=== PATIENT | female | born 1960 | race Caucasian/White ===

== ENCOUNTER 2018-04-08 07:29 | Emergency (ER) | payer OTHER ==
[~2018-04-08] VITALS: Ht 160 cm; Wt 93.9 kg
[2018-04-08 07:45] LABS: URINE BILIRUBIN NEGATIVE (Negative); URINE BLOOD TRACE (Negative); URINE CLARITY CLEAR; URINE COLOR YELLOW; URINE GLUCOSE-RANDOM NEGATIVE (Negative); URINE KETONES NEGATIVE (Negative); URINE LEUKOCYTES-REFLEX 3+ (Negative); URINE NITRITE-REFLEX NEGATIVE (Negative); URINE PROTEIN TRACE (Negative); URINE UROBILINOGEN 0.2 E.U./dl (0.2-1.0)
[2018-04-08] MEDS ORDERED: PLAVIX 75 MG TA75 M1 PO (07:45)
[2018-04-08] MEDS ORDERED: ATORVASTATIN CA40 MG PO (07:45)
[2018-04-08] MEDS ORDERED: PREMPRO 0.45-11 EACH PO (07:46)
[2018-04-08] MEDS ORDERED: AVAPRO 150 MG150 MG PO (07:47)
[2018-04-08] MEDS ORDERED: FISH OIL 1,001000 M2 PO (07:47)
[2018-04-08] MEDS ORDERED: CHLORTHALIDONE25 MG PO (07:47)
[2018-04-08] MEDS ORDERED: UNICOMPLEX M TA1 TA1 PO (07:47)
[2018-04-08] MEDS ORDERED: ASPIR 8181 MG PO (07:47)
[2018-04-08] MEDS ORDERED: VITAMIN B-12500 MCG PO (07:47)
[2018-04-08 07:52] LABS: BACTERIA-REFLEX 1-9 Few /HPF (None Seen); CASTS None Seen /LPF (None Seen); CRYSTALS None Seen /LPF (None Seen); MUCUS None Seen strn/LPF (None Seen); SQUAMOUS >10 Many /LPF (0-3); URINE RBC 0-2 Rare /HPF (0-2); URINE WBC-REFLEX >25 Many /HPF (0-5)
[2018-04-08] MEDS ORDERED: CIPRO500 M1 PO (07:53)
[2018-04-08] MEDS ORDERED: DOXYCYCLINE 10100 MG PO (07:56)
[2018-04-08 08:00] VITALS: BP 133/51
== END 2018-04-08 08:05 | disposition home or self-care (01) ==
LOC: M.ERS 07:29
PROVIDERS: Emergency Medicine Emergency Medical Services
DX: L03.319 Cellulitis of trunk, unspecified (principal); N39.0 Urinary tract infection, site not specified

== ENCOUNTER 2018-10-25 17:36 | Emergency (ER) | payer OTHER ==
[~2018-10-25] VITALS: Ht 152.4 cm; Wt 101.2 kg
[~2018-10-25 17:36] MED LIST: ASPIR 8181 MG PO; ATORVASTATIN CA40 MG PO; AVAPRO 150 MG150 MG PO; CHLORTHALIDONE25 MG PO; CIPRO500 M1 PO; DOXYCYCLINE 10100 MG PO; FISH OIL 1,001000 M2 PO; PLAVIX 75 MG TA75 M1 PO; PREMPRO 0.45-11 EACH PO; UNICOMPLEX M TA1 TA1 PO; VITAMIN B-12500 MCG PO
[2018-10-25] MEDS ORDERED: CHLORTHALIDONE25 MG PO (17:44)
[2018-10-25] MEDS ORDERED: ZETIA10 MG PO (17:45)
[2018-10-25] MEDS ORDERED: NORVASC5 MG PO (17:45)
[2018-10-25 18:02] LABS: ABSOLUTE BASOPHILS 0.1 thou/uL (0.0-0.2); ABSOLUTE EOSINOPHILS 0.2 thou/uL (0.0-0.7); ABSOLUTE LYMPHOCYTES 3.6 thou/uL (0.8-5.3); ABSOLUTE NEUTROPHILS 9.6 thou/uL (1.6-8.1); BASOPHILS 0.7 %; EOSINOPHILS 1.5 %; HEMATOCRIT 36.9 % (37.0-47.0); HEMOGLOBIN 12.2 gm/dL (12.0-15.0); LYMPHOCYTES 24.6 %; MCH 32.3 pg (26.0-34.0); MCHC 33.1 g/dL (28.0-37.0); MCV 97.5 fL (80.0-100.0); MONOCYTES 7.2 %; MPV 9.5 fl. (7.2-11.1); NUCLEATED RBCS 0 /100WBC; PLATELET COUNT* 215 thou/uL (150-400); RBC 3.78 mil/uL (4.20-5.00); RDW-CV 14.5 % (10.5-14.5); WBC 14.5 thou/uL (4.0-11.0)
[2018-10-25 18:08] LABS: APTT 29.4 Seconds (25.0-31.3); PROTIME 10.7 Seconds (9.20-11.50)
[2018-10-25 18:15] LABS: ALBUMIN 3.5 g/dL (3.4-5.0); ALKALINE PHOSPHATASE 134 U/L (46-116); ANION GAP 11 mmol/L (7-16); BUN 18 mg/dL (7-18); CALCIUM 9.4 mg/dL (8.5-10.1); CHLORIDE 94 mmol/L (98-107); CO2 27 mmol/L (21-32); CREATININE 1.1 mg/dL (0.6-1.3); GLUCOSE 175 mg/dL (70-99); POTASSIUM 3.8 mmol/L (3.5-5.1); SGOT 59 U/L (15-37); SGPT 51 U/L (30-65); SODIUM 132 mmol/L (136-145); TOTAL BILIRUBIN 0.6 mg/dL (<0.1-1.0); TOTAL PROTEIN 8.2 g/dL (6.4-8.2); TROPONIN-I LEVEL <0.06 ng/mL (<0.06)
[2018-10-25 20:34] VITALS: BP 143/68
== END 2018-10-25 20:37 | disposition short-term general hospital (02) ==
LOC: M.ERS 17:36
PROVIDERS: Emergency Medicine Emergency Medical Services
DX: T78.3XXA Angioneurotic edema, initial encounter (principal); Z88.8 Allergy status to other drugs, medicaments and biological substances; Y84.8 Other medical procedures as the cause of abnormal reaction of the patient, or of later complication, without mention of misadventure at the time of the procedure; Y92.89 Other specified places as the place of occurrence of the external cause

== ENCOUNTER 2018-12-09 15:23 | Inpatient (IN) | payer OTHER ==
[~2018-12-09] VITALS: Ht 162.6 cm; Wt 87.1 kg
[~2018-12-09 15:23] MED LIST changes: +NORVASC5 MG PO; +ZETIA10 MG PO
[2018-12-09] MEDS ORDERED: LOPRESSOR50 PO (18:34)
[2018-12-09] MEDS ORDERED: FLOMAX0.4 MG PO (18:35)
[2018-12-09] MEDS ORDERED: NORCO 5-325 TA1 EACH PO (18:40)
[2018-12-09] MEDS ORDERED: MIRALAX17 GM PO (18:41)
[2018-12-09 19:05] VITALS: BP 155/64
--- NOTE | 2018-12-09 23:31 | NUR ---
ASSUMED CARE AT 1930. PATIENT ADMITTED FROM [facility] PER W/C DESTINY. HAD ANGIOEDEMA REACTION ON OCTOBER 25 TO LISINOPRIL RESULTING IN SEVERE RESPIRATORY DISTRESS, WITH RESULTANT TRACHEOSTOMY. HAS BEEN AT [facility] SINCE OCTOBER 25. ASSISTED TO BED, NEEDS HELP FROM TWO STAFF TO PULL UP IN BED. TAKES PILLS WHOLE WITH WATER. HAS OLD TRACH THAT IS DECANNULATED PRIOR TO ADMIT, POSSIBLY 01/29. MIRELLA, NO DRAINAGE OR REDNESS NOTED. COUGHING AT TIMES, EXPECTORATED SMALL AMOUNT OF PHLEGM THAT WAS NOT VISUALIZED BY THIS NURSE. HAS HISTORY OF METHACILLIN SENSITIVE STAPH PNEUMONIA. CAN TURN SIDE TO SIDE. HAS PEG TUBE, INTACT, NO REDNESS NOTED. BRUISING ON LOWER ABDOMEN, SCATTERED ROUND AREAS. COCCYX PINK, HAS SMALL AREA ON GLUTEAL CLEFT THAT IS OPEN. ADMISSION ASSESSMENT DONE. STATES THE LAST FEW DAYS SHE HAS BEEN UNABLE TO VOID. SHE STATES THAT [facility] WOULD NOT LET HER USE THE BEDSIDE COMMODE BECAUSE SHE DID NOT HAVE THE BALANCE TO SIT ON IT. THEREFORE ATTEMPED TO VOID PER BEDPAN, UNSUCCESSFUL. BLADDER SCANNED 868 ML. STRAIGHT CATH DONE. WHILE INSPECTING THE PERINEAL REGION BEFORE DONNING STERILE GLOVES, THIS NURSE VISUALIZED WHITE PUS STREAMING FROM PERINEAL AREA. STRAIGHT CATH DONE, 600 ML CLOUDY URINE RETURNED, WITH PURULENT URINE DRIPPING AT THE VERY END OF THE PROCEDURE. PERICARE DONE, MOISTURE BARRIER APPLIED. HEELS ELEVATED ON PILLOWS. NO C/O PAIN AT THIS TIME. HAS PRESSURE DRESSING LT ARM FROM PICC LINE REMOVAL. WEARING O2 2L/NC. STATES BM THIS MORNING. HAS SCABS ON THE BACK OF HER HEAD. PICTURES TAKEN. HOURLY ROUNDS CONTINUE. BED ALARM ON. CALL LITE IN REACH.
[2018-12-09 23:33] LABS: URINE BILIRUBIN NEGATIVE (Negative); URINE BLOOD 2+ (Negative); URINE CLARITY CLOUDY; URINE COLOR YELLOW; URINE GLUCOSE-RANDOM NEGATIVE (Negative); URINE KETONES NEGATIVE (Negative); URINE NITRITE-REFLEX NEGATIVE (Negative); URINE PROTEIN TRACE (Negative); URINE SPECIFIC GRAVITY <= 1.005 (1.005-1.030); URINE UROBILINOGEN 0.2 E.U./dl (0.2-1.0)
[2018-12-09 23:34] LABS: URINE LEUKOCYTES-REFLEX 3+ (Negative)
[2018-12-09 23:41] LABS: CASTS None Seen /LPF (None Seen); CRYSTALS None Seen /LPF (None Seen); SQUAMOUS NONE SEEN /LPF (0-3); URINE RBC 3-10 Few /HPF (0-2); URINE WBC-REFLEX >25 Many /HPF (0-5); WBC CLUMPS Few (None Seen)
[2018-12-10 04:11] VITALS: BP 115/46
[2018-12-10 05:00] LABS: HEMATOCRIT 22.8 % (37.0-47.0); HEMOGLOBIN 7.6 gm/dL (12.0-15.0); MCH 33.2 pg (26.0-34.0); MCHC 33.5 g/dL (28.0-37.0); MPV 8.9 fl. (7.2-11.1); RBC 2.31 mil/uL (4.20-5.00); RDW-CV 15.6 % (10.5-14.5); WBC 10.7 thou/uL (4.0-11.0)
--- NOTE | 2018-12-10 05:09 | NUR ---
RESTED QUIETLY IN BED. TURNED Q2H. STRAIGHT CATHED 250 ML RYAN URINE. URINE IS STILL CLOUDY BUT LESS CLOUDY THAN LAST TIME. C/O BEING HOT, TEMP 99.0. GIVEN FAN TO CIRCULATE AIR. GIVEN APAP. STATES FEELING BETTER. NO C/O PAIN. HOURLY ROUNDS CONTINUE. BED ALARM ON. CALL LITE IN REACH.
[2018-12-10 05:11] LABS: CALCIUM 8.3 mg/dL (8.5-10.1); CREATININE 0.6 mg/dL (0.6-1.3); POTASSIUM 4.1 mmol/L (3.5-5.1)
[2018-12-10 09:08] VITALS: BP 127/46
--- NOTE | 2018-12-10 13:03 | NUR ---
Nutrition: Pt admitted to rehab with myopathy. Had angioedema in reaction to lisinopril on October 25. Wt: 192#. Pressure ulcer on gluteal cleft, coccyx pink. Regular diet - unsure of po intake today. BG 161, no albumin recorded. +BM. RD will order Beneprotein for added protein intake. Mild risk. Will follow weekly.
[2018-12-10 13:17] LABS: % SATURATION 15 % (20-39); IRON 37 ug/dL (50-175)
--- NOTE | 2018-12-10 15:31 | NUR ---
SW met with pt to complete initial assessment, introduce self, and SW role. Pt alert, oriented, pleasant. Pt lives at home with her who works. Plan for pt to dc home with and dtr will be home with pt during the day over this summer. Pt was independent with ADLs and mobility. No DME or HH or SNF history. SW to continue to follow to assist with safe dc planning.
--- NOTE | 2018-12-10 18:59 | NUR ---
ASSUMMED CARE OF PT AT 0730, PT ALERT AND ORIENTED, PT DENIES PAIN, PT TRANSFERS WITH ASSIST OF 1, GB WALKER CUEING, UP TO COMMODE AND HAD LARGE BM, INCONT OF SM AMOUNTS OF URINE BUT UNABLE TO VOID, BLADDER SCANNED EVERY 4 HOURS AT 0800, 1200, 1600, ST CATHED AT 0800 FOR 525CC AND AT 1600 FOR 575CC. 1200 BLADDER SCAN 128 SO DID NOT NEED TO CATH, PT TAKING FOOD AND FLUIDS WELL, PT HAS OCCASIONAL LOOSE COUGH, O2 ON AT 2 LITERS SATS OF 94-95%, PT ENCOURAGED TO REPOSTION EVERY 2 HOURS, SMALL RED AREA ON LEFT BUTTOCK, TRACH SITE INTACT, PEG TUBE SITE INTACT, PARTICIPATED IN ALL THERAPIES, HOURLY ROUNDING COMPLETED, TO DININGROOM FOR MEALS, ASSESSMENT COMPLETE, WILL CONTINUE TO MONITOR.
[2018-12-10 20:16] VITALS: BP 132/37
[2018-12-10 22:30] VITALS: BP 132/37
--- NOTE | 2018-12-11 05:46 | NUR ---
PT ALERT AND ORIENTED. PT WAS BROUGHT OUT OF ROOM BEGINING OF SHIFT PER TONARDO WARNING PROTOCOL. MEDS GIVEN PER EMAR. 603ML SEEN PER BLADDER SCAN. PT TO BE BLADDER SCANNED AGAIN BEFORE END OF SHFIT. PT ST CATHEDD, 535ML OUTPUT NOTED. PT HAD HOT FLASHES ON AND OFF THE NIGHT. PT'S O2 INCREASED TO 2L FOR O2 SATTING IN THE 80'S. 02 NOW IN THE 90'S ON 2L NC. PAIN MED GIVEN THIS SHIFT. RELIEF NOTED. BED ALARM ON. CALL LIGHT WITHIN REACH. WILL CONTINUE TO MONITOR.
--- NOTE | 2018-12-11 07:34 | CON ---
[facility] [address] [place] [address] CONSULTATION Name: SINDHU SANTO Room: [address] IN [facility]#: [id number] Admission: 12/09/18 Attend Phys: Golden Lou MD Discharge: Date of : 56 Report #: [id number] THIS REPORT FOR: //name// CC: Brannon Lou DATE OF SERVICE: 12/10/2018 REFERRING PHYSICIAN: Golden Lou MD REASON FOR CONSULTATION: Management of diabetes, hypertension, and hyperlipidemia. HISTORY OF PRESENT ILLNESS: The patient is a 58-year-old female with a history of angioedema seen initially in [place] and got intubated immediately. She required a trach and on the vent. She had a complicated stay and had MSSA PNA. She had numerous bronchoscopies. She was discharged to [facility] for rehabilitation for vent weaning. She was able to wean from the ventilator and she needed continued rehabilitation, so she was sent here for further rehabilitation as it is closer to home. She denies any fever or chills. She feels much better. She is breathing well. She is very weak; however, she has been able to get out of the wheelchair. PAST MEDICAL HISTORY: Angioedema, peripheral vascular disease, hyperlipidemia, hypertension, GERD and diabetes. PAST SURGICAL HISTORY: Shows a fem-pop bypass, hernia repair, tracheostomy, right lower quadrant back in 2017 with mesh involvement and a cholecystectomy. FAMILY HISTORY: Hypertension and diabetes. MEDICATIONS: Include albuterol, atorvastatin, Plavix, cyanocobalamin, Lovenox, fluconazole, metoprolol, protein liquid, tamsulosin, albuterol and ipratropium, calamine, dextrose, hydrocodone/APAP, MiraLax, and simethicone. SOCIAL HISTORY: The patient is and lives with and the dog. Used to smoke, but quit 10 years ago. Occasional drinker, but no illicit drug use. REVIEW OF SYSTEMS: The patient denies any fever or chills. She does have some occasional cough and occasional shortness of breath, but better. Denies any chest pain. No nausea, no vomiting. She is very weak. A 12-point review of system unremarkable [place] [address] CONSULTATION Name: SINDHU SANTO Room: [address]#: [id number] Admission: 12/09/18 Attend Phys: Golden Lou MD Discharge: Date of : 56 Report #: [id number] PHYSICAL EXAMINATION: VITAL SIGNS: Temperature 36.9, heart rate of 90, respiratory rate 17, blood pressure 127/46, 93% on 2 liters nasal cannula. GENERAL: The patient is alert. She is oriented x 3, not in acute respiratory distress. HEENT: Normocephalic, atraumatic. Nares patent. Clear pharynx, sitting up in a wheelchair. NECK: She has a previous trach site. No discharge noted. RESPIRATORY: Clear to auscultation bilaterally. GASTROINTESTINAL: Abdomen is soft, nontender, good bowel sounds. No organomegaly. GENITOURINARY: Deferred. MUSCULOSKELETAL: She moves extremities; however, she is on a wheelchair. PSYCHIATRIC: The patient is calm and cooperative. LABORATORY DATA: Reviewed and she has a hemoglobin of 7.6. She has had history in the past of anemia in the last tested I got was 7.1 on 12/08/2018 from [facility]. MCV is 19-9, platelets 165. Sodium 142, potassium 4.1, chloride is 105, carbon dioxide 28, anion gap is 9, BUN is 6, creatinine is 0.6, glucose 150, calcium is 8.3. UA showed trace protein and blood 2+, leukocytes 3+, WBC more than 25 and wbc clumps few. IMPRESSION: 1. The patient is a 58-year-old female transferred to us from [facility] for continued rehabilitation. She does have respiratory failure secondary to angioedema, status post tracheostomy and ventilator, now weaned off. 2. Recent acute kidney injury secondary to urinary retention, improved, but now needing straight catheterization. 3. Urinary retention. 4. Status post angioedema, diabetes mellitus, history of PVD, history of hyperlipidemia, anemia, unknown is chronic. 5. Hypertension. 6. Chronic obstructive pulmonary disease not in exacerbation. 7. She has a urinary tract infection. PLAN: We will put her on Cipro for 7 days. We will continue with rehab with PT and OT. She is currently on 2 liters nasal cannula. We will resume her medications and we will put her on insulin sliding scale for her diabetes. She will continue to have straight catheterization given the urinary retention. She will be on Lovenox for DVT prophylaxis. I will also do iron studies, and figure out why she continues to be anemic that she has had it in the past. <ELECTRONICALLY SIGNED> By: Linda Mills MD 12/11/18 0734 [id number] Mills MD /PMT
[2018-12-11 07:52] VITALS: BP 110/46
--- NOTE | 2018-12-11 18:06 | NUR ---
AM ASSESSMENT AND VITAL SIGNS COMPLETED DOCUMENTED. PT PARTICIPATED WITH ALL THERAPIES. AM BLADDER SCAN SHOWED 362ML, STRAIGHT CATHED WITH 250ML. NEXT SCAN TO BE AT 1800 BUT PT WANTS TO WAIT UNTIL SHE GETS INTO BED AFTER DINNER. FALL PRECAUTIONS AND HOURLY ROUNDING CONTINUE.
--- NOTE | 2018-12-11 18:53 | NUR ---
BLADDER SCAN DONE, 254ML ON SCAN, 200ML OUT WITH STRAIGHT CATH. PT ENCOURAGED TO INCREASE HER WATER INTAKE.
--- NOTE | 2018-12-11 19:50 | NUR ---
RESTING IN BED AND VISITING WITH A FEMALE VISITOR. DENIES DISCOMFORT. TOOK MEDS WHOLE ALL AT ONCE WITH WATER. DECLINED OFFER OF A SNACK.
[2018-12-11 20:02] VITALS: BP 139/55
--- NOTE | 2018-12-12 05:23 | NUR ---
STRAIGHT CATHS DONE AT 2300 AND 0300. TOLERATED CATHS WITHOUT DIFFICULTY. NO COMPLAINTS VOICED. HOURLY ROUNDING IN PROGRESS.
[2018-12-12 08:00] VITALS: BP 108/45
[2018-12-12 19:57] VITALS: BP 131/46
--- NOTE | 2018-12-12 23:07 | NUR ---
ASSUMED CARE AT 1930. PATIENT RESTING IN BED. ABLE TO TURN SIDE TO SIDE PER SELF. TAKES PILLS WHOLE WITH WATER. STRAIGHT CATHED, 679 PER BLADDER SCAN, 500 ML SLIGHTLY CLOUDY URINE RETURNED. NO C/O PAIN. HOURLY ROUNDS CONTINUE. BED ALARM ON. CALL LITE IN REACH.
[2018-12-13 04:27] LABS: CREATININE 0.7 mg/dL (0.6-1.3); MAGNESIUM 1.3 mg/dL (1.8-2.4); POTASSIUM 3.9 mmol/L (3.5-5.1)
--- NOTE | 2018-12-13 06:26 | NUR ---
SLEPT MOST OF THE NIGHT. STRAIGHT CATHED AT 0400. TOLERATED WELL. SEE INTERVENTION. MG LOW PER LAB, WILL CONTACT PHYSICIAN FOR ORDERS. ASSISTED WITH CHANGING POSITIONS. MOVING BETTER IN BED. NO C/O PAIN. HOURLY ROUNDS CONTINUE. BED ALARM ON. CALL LITE IN REACH.
--- NOTE | 2018-12-13 06:33 | NUR ---
DR. WOLFF NOTIFIED OF LOW MG PER YOUCALLMD.
--- NOTE | 2018-12-13 06:44 | NUR ---
DR WOLFF RECEIVED MESSAGE PER DORETHA. NO NEW ORDERS RECEIVED AT THIS TIME.
[2018-12-13 08:00] VITALS: BP 122/42
--- NOTE | 2018-12-13 16:40 | NUR ---
ASSUMMED CARE OF PT AT 0730, PT ALERT AND ORIENTED, PT TRANSFERS WITH MOD ASSIST OF 1 GB WALKER, NEEDS SLIGHT ASSIST TO RAISE, PT UNABLE TO VOID AT 1100, SCAN FOR 127CC, PT VOIDED 50 CC AT 1600, SCANNED FOR [address]ATH[address] FOR 400CC DARK RYAN URINE, PT ENCOURAGED TO INCREASE HER FLUID INTAKE, ORDER FOR UROLOGY CONSULT PLACED, PT DENIES PAIN, HAD LUNCH IN DININGROOM, MG 1.3 THIS AM, REPLACED PER PROTOCAL, PARTICIPATED IN ALL HTERAPIES, HOURLY ROUNDING COMPLETED, ASSESSMENT COMPLETE, WILL CONITNUE TO MONITOR.
[2018-12-13 19:30] VITALS: BP 121/47
--- NOTE | 2018-12-13 20:20 | NUR ---
RESTING QUIETLY IN BED AND WATCHING TV. IN GOOD SPIRITS. SMILING. DENIES DISCOMFORT. CALL LIGHT WITHIN REACH.
--- NOTE | 2018-12-14 05:37 | NUR ---
RESTED QUIETLY. MG+ STILL LOW AT 1.3. USING ELECTROLTE PROTOCOL TO REPLACE MG+. STRAIGH CATH DONE AT 0420. PATIENT TOLERATED WELL. HOURLY ROUNDING IN PROGRESS.
[2018-12-14 07:15] VITALS: BP 119/47
--- NOTE | 2018-12-14 16:42 | NUR ---
ASSUMMED CARE OF PT AT 0730, PT ALERT AND ORIENTED, PT TRANSFERS WITH MOD ASSIST GB WALKER, NEEDS SLIGHT LIFTING ASSIST, PT TAKING FOOD AND FLUIDS WELL, PT ATTEMPTED TO VOID AT 1145, NO VOID, BLADDER SCANNED FOR 128CC, PT ATTEMPTED TO VOID AT 1600 WITH 50CC OUT, AND PT STATED SHE COULD TELL SHE WAS DRIBBLING IN DONNIE PAD, BLADDER SCANNED FOR 568, ST CATHED FOR 525 CC CLEAR YELLOW URINE, UA SENT TO LAB, MG+ REPLACED AND REMAINS LOW WILL CONTINUE TO REPLACE AND RECHECK LABS, PT HAS LOOSE COUGH AT INTERVALS,TO DININGROOM FOR LUNCH, COCCYX AREA RED, BLANCHABLE, BARRIER OINTMENT APPLIED, PARTICIPATED IN ALL THERAPIES, HOURLY ROUNDING COMPLETED, REPOSTIONED EVERY 2 HOURS, ASSESSMENT COMPLETE, WILL CONTINUE TO MONITOR.
[2018-12-14 19:30] LABS: URINE BILIRUBIN NEGATIVE (Negative); URINE BLOOD NEGATIVE (Negative); URINE CLARITY CLEAR; URINE COLOR YELLOW; URINE GLUCOSE-RANDOM NEGATIVE (Negative); URINE KETONES NEGATIVE (Negative); URINE LEUKOCYTES NEGATIVE (Negative); URINE NITRITE NEGATIVE (Negative); URINE PROTEIN NEGATIVE (Negative); URINE UROBILINOGEN 0.2 E.U./dl (0.2-1.0)
[2018-12-14 19:37] VITALS: BP 113/44
--- NOTE | 2018-12-14 20:25 | NUR ---
RESTING QUIETLY IN BED AND WATCHING TV. DENIES DISCOMFORT. TOOK MEDICATIONS WHOLE WITH WATER. DECLINED OFFER OF A SNACK.
--- NOTE | 2018-12-15 04:57 | NUR ---
RESTED ON/OFF. ASSISTED WITH REPOSITIONING. PATIENT ABLE TO TURN SELF BUT NEEDS HELP WITH PLACING PILLOW BEHIND HER BACK. STRAIGHT CATH DONE X 2. URINE IS CLEAR/YELLOW. UA FROM YESTERDAY NEGATIVE. MG+ THIS AM 1.7 AND REPLACED WITH PO MG+ PER ELECTROLYTE PROTOCOL. NEEDS ANOTHER DOSE TODAY AND A RECHECK. HOURLY ROUNDING IN PROGRESS.
[2018-12-15 07:00] VITALS: BP 123/44
--- NOTE | 2018-12-15 15:22 | NUR ---
SW and Dr Lou met with pt to review team conference summary and plan for pt to remain on rehab unit at least one more week with team to reassess pt length of stay during team conference next Friday 12/22. Pt in agreement with plan. Pt said she would tell her about the reteam and did not have any questions or concerns at this time. SW to continue to follow to assist with safe dc planning.
--- NOTE | 2018-12-15 18:10 | NUR ---
AM ASSESSMENT AND VITAL SIGNS COMPLETED DOCUMENTED. PT HAS HAD BETTER URINE OUTPUT, ALL PVR HAVE BEEN < 300. FALL PRECAUTIONS AND HOURLY ROUNDING CONTINUE.
[2018-12-15 20:00] VITALS: BP 116/49
--- NOTE | 2018-12-15 23:05 | NUR ---
ASSUMED CARE AT 1930. PATIENT RESTING IN RECLINER UNTIL AROUND 2029. PATIENT UP WITH SBA, GAIT BELT, STAND PIVOT. ATTEMPTED TO VOID PER BSC, UNABLE TO. NO INCONTINENCE EVEN WHILE RISING. BLADDER SCANNED--258 ML. STRAIGHT CATHED 400 ML RETURNED. TAKES PILLS WHOLE WITH WATER. DENIES PAIN. GIVEN MG AT HS PER ELECTROLYTE PROTOCOL. HOURLY ROUNDS CONTINUE. BED ALARM ON. CALL LITE IN REACH.
--- NOTE | 2018-12-16 05:23 | NUR ---
SLEPT AFTER HS UNTIL AWAKENED FOR VOIDING ATTEMPT. AT 2145 HAD PVR OR 528, ST CATHED 400 URINE RESULT. AT 0400 VOIDED 150 ML PER BSC, HAD BLADDER SCAN RESICUAL OF [address] CATHED 550 RYAN URINE. URINE LOOKS MUCH IMPROVED VISUALLY. NO C/O PAIN. ASSISTED WITH TURNS. HOURLY ROUNDS CONTINUE. BED ALARM ON. CALL LITE IN REACH.
[2018-12-16 08:00] VITALS: BP 87/45
[2018-12-16 08:54] VITALS: BP 87/45
--- NOTE | 2018-12-16 18:38 | NUR ---
TABATHA HELD THIS AM DUE TO LOW BLOOD PRESSURE AND PT C/O FEELING DIZZY. PT WAS ABLE TO WORK WITH ALL THERAPIES AND SHE IS MAKING GOOD PROGRESS. URINARY RETENTION CONTINUES TO BE HER BIGGEST ISSUE. FALL PRECAUTIONS AND HOURLY ROUNDING CONTINUE.
[2018-12-16 20:13] VITALS: BP 134/46
--- NOTE | 2018-12-16 23:06 | NUR ---
ASSUMED CARE AT 193. PATIENT RESTING IN BED, CHANGED INTO [facility] AROUND 2114. TURNS SELF IN BED, AND PULLS SELF UP USING HANDLES ON SIDE RAILS. UP TO BSC TO VOID, NONE RESULTED. BLADDER SCANNED 705, STRAIGHT CATHED, 625 OF RYAN URINE. TOLERATED WELL. TAKES PILLS WHOLE WITH WATER. NO C/O PAIN. REFUSED COLACE THIS PM DUE TO PRIOR SOFT STOOL. HOURLY ROUNDS CONTINUE. BED ALARM ON. CALL LITE IN REACH.
[2018-12-17 03:53] LABS: ALBUMIN 2.8 g/dL (3.4-5.0); CREATININE 0.9 mg/dL (0.6-1.3); POTASSIUM 3.8 mmol/L (3.5-5.1); TOTAL BILIRUBIN 0.7 mg/dL (<0.1-1.0); TOTAL PROTEIN 6.3 g/dL (6.4-8.2)
--- NOTE | 2018-12-17 06:04 | NUR ---
SLEPT MOST OF THE SHIFT. AWAKENED AROUND 0400 TO VOID. TO BR, VOIDED 50 ML THEN BLADDER SCANNED--850 ML. STRAIGHT CATHED, 825 ML. LEGS LESS EDEMATOUS. FEET STILL PUFFY. NO C/O PAIN. HOURLY ROUNDS CONTINUE. BED ALARM ON. CALL LITE IN REACH.
[2018-12-17 08:10] VITALS: BP 115/47
[2018-12-17 09:01] VITALS: BP 115/47
--- NOTE | 2018-12-17 16:27 | NUR ---
AM ASSESSMENT AND VITAL SIGNS COMPLETED DOCUMENTED. PT CONTINUES TO WORK WITH PT, OT AND ST AND IS PROGRESSING TOWARD DISCHARGE GOALS. 1600 BLADDER SCAN WAS 656 POST VOID WITH 600ML OBTAINED WITH STRAIGHT CATH. BILATERAL THIGH HIGH VICTORIA HOSE ON AND PT HAS KEPT HER LEGS UP WHEN SHE IS IN A CHAIR. FALL PRECAUTIONS AND HOURLY ROUNDING CONTINUE.
[2018-12-17 20:11] VITALS: BP 117/46
[2018-12-17 20:14] VITALS: BP 117/46
--- NOTE | 2018-12-18 05:16 | NUR ---
PT ALERT AND ORIENTED. VSS ON RA. PT VOIDED 100ML USING BSC. PT STRAIGHT CATHED THIS SHIFT. OUTPUT DOCUMENTED. PT TOOK SLEEPING PILL @ HS. TP SLEPT MOST OF SHIFT. FALL PRECAUTION IN PLACE. CALL LIGHT WITHIN REACH. HOURLY ROUNDINGS MADE. WILL CONTINUE TO MONITOR.
[2018-12-18 07:54] VITALS: BP 131/53
--- NOTE | 2018-12-18 17:51 | NUR ---
ASSESSMENT COMPLETE. PT ALERT AND ORIENTED X4. PT HAD MEALS IN DINING ROOM. WALKED DOWN AT LUNCH, WHEELCHAIR AT DINNER. PT STRAIGHT CATH AT 1400 WITH 450ML OUTPUT. PT DENIES PAIN. +2 EDEMA NOTED TO BLE. PT ELEVATED FEET IN CHAIR MOST OF THE DAY. PT IS ON ROOM AIR, VSS. SEE ASSESSMENT AND VITALS FOR OTHER DETAILS. CALL LIGHT WITHIN REACH, WILL CONTINUE PLAN OF CARE
[2018-12-18 20:10] VITALS: BP 125/45
[2018-12-18 20:30] VITALS: BP 125/45
[2018-12-19 05:05] LABS: HEMATOCRIT 25.1 % (37.0-47.0); MCH 31.1 pg (26.0-34.0); MCHC 31.8 g/dL (28.0-37.0); MPV 8.2 fl. (7.2-11.1); RBC 2.57 mil/uL (4.20-5.00); RDW-CV 16.3 % (10.5-14.5); WBC 7.2 thou/uL (4.0-11.0)
--- NOTE | 2018-12-19 05:05 | NUR ---
PT ALERT AND ORIENTED. VSS ON RA. PT SLEPT MOST OF SHIFT. PT VOIDED 50ML. BLADDER SCANN Q6. STRAIGHT CATH PERFORMED AND DOCUMENTED. PT REFUSED COLACE THIS SHIFT. NO BM NOTED THIS SHIFT. PT DENIES N/V/P. PT COMPLAINED OF CRAMPS ON LEFT FOOT, WHICH SHE SAID MAY HAVE BEEN FROM WEARING VICTORIA HOSE. VICTORIA HOSE OFF THIS SHIFT. BLE EDEMA NOTED. PT PLEASANT AND APPROPRIATE. CALL LIGHT WITHIN REACH. HOURLY ROUNDINGS MADE. WILL CONTINUE PLAN OF CARE. PT COMPLAI
[2018-12-19 05:56] LABS: ALBUMIN 2.6 g/dL (3.4-5.0); CALCIUM 9.3 mg/dL (8.5-10.1); CREATININE 0.7 mg/dL (0.6-1.3); POTASSIUM 3.5 mmol/L (3.5-5.1); TOTAL BILIRUBIN 0.6 mg/dL (<0.1-1.0); TOTAL PROTEIN 5.9 g/dL (6.4-8.2)
[2018-12-19 07:47] VITALS: BP 122/46
--- NOTE | 2018-12-19 17:36 | NUR ---
PATIENT UP IN CHAIR MOST OF DAY. PATIENT IS UP WITH STANDBY ASSIST WITH GAIT BELT AND WALKER. PATIENT DENIES ANY PAIN. PATIENT HAS GOOD APPETITE, ENSURE PROTEIN SUPPLEMENTS PROVIDED. PATIENT CONTINUES TO HAVE URINARY RETENSION AND HAS BEEN STRAIGHT CATHED. PATIENT DENIES ANY NEEDS AT THIS TIME. CALL LIGHT WITHIN REACH. WILL CONTINUE TO MONITOR.
[2018-12-19 19:10] VITALS: BP 127/42
--- NOTE | 2018-12-19 20:05 | NUR ---
RESTING QUIETLY IN BED. DENIES DISCOMFORT. DECLINED OFFER OF A SNACK. TOOK MEDICATIONS WHOLE WITH WATER. MELATONIN GIVEN PER REQUEST.
--- NOTE | 2018-12-20 06:15 | NUR ---
STRAIGHT CATH AT ABOUT 0015. WILL DO ANOTHER BLADDER SCAN. RESTED QUIETLY. TURNS SELF. SOMETIMES CALLS FOR ASSIST WITH PILLOWS. HOURLY ROUNDING IN PROGRESS.
[2018-12-20 07:51] VITALS: BP 121/47
[2018-12-20 07:57] VITALS: BP 121/47
--- NOTE | 2018-12-20 16:52 | NUR ---
AM ASSESSMENT AND VITAL SIGNS COMPLETED DOCUMENTED. PT CONTINUES TO MAKE PROGRESS AND IS VERY MOTIVATED. PT WAS ABLE TO VOID 150ML AND STRAIGHT CATH DONE FOR 450ML. LOWER LEG EDEMA HAS RESOLVED. HOURLY ROUNDING AND FALL PRECAUTIONS CONTINUE.
[2018-12-20 20:00] VITALS: BP 136/50
--- NOTE | 2018-12-21 05:02 | NUR ---
ASSUMED CARES AT 1915. ALERT AND ORIENTED. PLEASANT. MELATONIN GIVEN FOR SLEEP. SBA WITH GAIT BELT AND WALKER. UP TO BATHROOM. DOES OWN CARES. AT 2330, PT VOIDED 500 CC BUT WAS STRAIGHT CATHED AND HAD 725 CC CLEAR YELLOW URINE OUT. SLEPT MOST OF THE NIGHT. CALL LIGHT IN REACH AND BED ALARM ON.
[2018-12-21 07:58] VITALS: BP 119/40
--- NOTE | 2018-12-21 18:59 | NUR ---
PT CONTINUES TO GAIN STRENGTH AND ENDURANCE. FLOMAX GIVEN FOR CONTINUED URINARY RETENTION. PT IS ABLE TO VOID 300 TO 500ML OF CLEAR YELLOW URINE BUT RETAINS AN ADDITIONAL 300-400ML'S AND REQUIRES STRAIGHT CATHETERIZATION. FALL PRECAUTIONS AND HOURLY ROUNDING CONTINUE.
[2018-12-21 19:53] VITALS: BP 127/52
--- NOTE | 2018-12-22 05:10 | NUR ---
ASSUMED CARES AT 1920. ALERT AND ORIENTED. PLEASANT. DENIED ANY PAIN. MIN ASSIST WITH GAIT BELT AND WALKER. UP TO BATHROOM. PEG TUBE CLAMPED. REFUSED BEDTIME SNACK. PT ONLY VOIDED 25 CC. WAS STRAIGHT CATHED, HAD 500 CC YELLOW URINE OUT. MELATONIN GIVEN PER PT REQUEST. SLEPT WELL MOST OF THE NIGHT. CALL LIGHT IN REACH AND BED ALARM ON.
[2018-12-22 07:40] VITALS: BP 124/41
--- NOTE | 2018-12-22 16:04 | NUR ---
PATIENT UP WITH SBA, WALKER AND GAIT BELT. NO COMPLAINTS OF PAIN. PATIENT BLADDER SCANNED THIS AFTERNOON, REFUSED TO BE STRAIGHT CATHED FOR VALUE OF 290MLS AT THAT TIME. PATIENT STATED SHE WANTED TO TRY TO VOID AGAIN AFTER THERAPY. PATIENT VOIDED 125MLS, NO STRAIGHT CATH NEEDED AT THAT TIME. WILL BLADDER SCAN AT 1800. DISCHARGE SET FOR THURSDAY.
--- NOTE | 2018-12-22 16:26 | NUR ---
LETTY and Dr Lou met with pt and reviewed team conference summary and plan for pt to dc home on Thursday after mod I trial. SW to order RW, sent referral and order to [facility] after [facility] unable to accept pt insurance. Pt very pleased with plan and is so excited to be able to dc home Sunday 12/24. SW to continue to follow to assist with safe dc planning.
[2018-12-22 20:00] VITALS: BP 148/61
--- NOTE | 2018-12-22 20:15 | NUR ---
SITTING UP IN RECLINER WITH LEGS ELEVATED AND HAS THIGH HIGH VICTORIA HOSE ON. DENIES DISCOMFORT. INFORMED IN REPORT THAT PATIENT STATED MELATONIN WASN'T HELPING HER SLEEP. OFFER OF AMBIEN DECLINED. CALL LIGHT WITHIN REACH.
--- NOTE | 2018-12-23 05:47 | NUR ---
STRAIGHT CATH DONE AT 0010. CALLS FOR ASSIST WITH TURNING. HOURLY ROUNDING IN PROGRESS. HOURLY ROUNDING IN PROGRESS.
[2018-12-23 08:50] VITALS: BP 111/52
[2018-12-23 19:40] VITALS: BP 138/51
--- NOTE | 2018-12-23 19:40 | NUR ---
RESTING QUIETLY IN BED. AMBULATED TO THE BATHROOM TO VOID. DENIES DISCOMFORT. CALL LIGHT WITHIN REACH.
--- NOTE | 2018-12-24 06:01 | NUR ---
PATIENT RESTED QUIETLY. MODIFIED INDEPENDENT IN ROOM WITH A WALKER. PATIENT STRAIGTH CATHED HERSELF THIS MORNING WITH SET UP. HOURLY ROUNDING IN PROGRESS.
[2018-12-24 08:16] VITALS: BP 149/58
[2018-12-24 11:43] VITALS: BP 149/58
[2018-12-24] MEDS ORDERED: HYDROCHLOROTH12.5 M2 PO (13:06)
[2018-12-24] MEDS ORDERED: MIRALAX17 GM PO (13:08)
[2018-12-24 13:16] VITALS: BP 149/58
--- NOTE | 2018-12-24 13:17 | NUR ---
Pt to dc home with today. Amara delivered pt rolling walker. [facility]TY discussed what HH agencies may be in network with insurance and pt preference for [facility]. [facility] called and spoke with Yumiko and babita Perez in intake accepted referral. LETTY faxed referral and dc orders and med list. Pt to provide pt ride home. [facility] ph [phone] fax [phone]
--- NOTE | 2018-12-24 14:05 | NUR ---
ASSUMMED CARE OF PT AT 0730, PT ALERT AND ORIENTED, PT MOD I IN ROOM AND ON UNIT, WITH WALKER, PT DENIES PAIN, TAKING FOOD AND FLUIDS WELL, PT VOIDED 425 CC AT 1230, PT SCANNED FOR 339 CC BUT REFUSED TO ST CATH AT THAT TIME, STATES SHE WOULD ATTEMPT TO VOID AGAIN AROUND [address] CATH AT HOME, ST CATH EDUCATION RE INFORCED, ORDERS OBTAINED FOR DISCHARGE, PT EDUCATED ON FOLLOW UP APPTS, MEDICATIONS, DIET, HOME HEALTH, ST CATHING, SCRIPTS GIVEN TO PT, PT STATES UNDERSTANDING OF DISCHARGE INSTRUCTIONS, PT DISCHARGED WITH BELONGINGS, DISCHARGE PACKET, TO MAIN ENTRANCE.
== END 2018-12-24 14:23 | disposition home health service (06) | DRG 189 ==
LOC: M.REH 15:23
PROVIDERS: Internal Medicine; Nurse Practitioner Adult Health; ADMIT Physical Medicine & Rehabilitation
DX: J96.00 Acute respiratory failure, unspecified whether with hypoxia or hypercapnia (principal); G72.81 Critical illness myopathy; N17.9 Acute kidney failure, unspecified; N39.0 Urinary tract infection, site not specified; E44.0 Moderate protein-calorie malnutrition; R33.9 Retention of urine, unspecified; E11.51 Type 2 diabetes mellitus with diabetic peripheral angiopathy without gangrene; E78.5 Hyperlipidemia, unspecified; I10 Essential (primary) hypertension; J44.9 Chronic obstructive pulmonary disease, unspecified; T78.3XXA Angioneurotic edema, initial encounter; K21.9 Gastro-esophageal reflux disease without esophagitis; Z82.49 Family history of ischemic heart disease and other diseases of the circulatory system; Z83.3 Family history of diabetes mellitus; Z79.84 Long term (current) use of oral hypoglycemic drugs; Z93.0 Tracheostomy status; Z68.32 Body mass index [BMI] 32.0-32.9, adult

== ENCOUNTER → 2020-07-31 | Outpatient (CLI) | payer OTHER ==
[~2020-07-31] MED LIST changes: +FLOMAX0.4 MG PO; +HYDROCHLOROTH12.5 M2 PO; +LOPRESSOR50 PO; +MIRALAX17 GM PO; +NORCO 5-325 TA1 EACH PO
== END ==
LOC: M.ULTRA 07-30 09:10
PROVIDERS: ATTEND Nurse Practitioner Family
DX: R97.1 Elevated cancer antigen 125 [CA 125] (principal); J90 Pleural effusion, not elsewhere classified; R14.0 Abdominal distension (gaseous); N88.8 Other specified noninflammatory disorders of cervix uteri

== ENCOUNTER → 2020-08-10 | Outpatient (CLI) | payer OTHER | LOC: M.MRI 08-01 11:23 | PROVIDERS: ATTEND Nurse Practitioner Family | DX: R18.8 Other ascites (principal); D25.9 Leiomyoma of uterus, unspecified; K44.9 Diaphragmatic hernia without obstruction or gangrene; J90 Pleural effusion, not elsewhere classified; R14.0 Abdominal distension (gaseous); K76.9 Liver disease, unspecified; R97.1 Elevated cancer antigen 125 [CA 125] ==

== ENCOUNTER 2020-08-30 19:16 | Emergency (ER) | payer OTHER ==
[~2020-08-30] VITALS: Ht 167.6 cm; Wt 127.5 kg
[2020-08-30 20:03] LABS: CREATININE 4.3 mg/dL (0.6-1.3); POTASSIUM 5.7 mmol/L (3.5-5.1)
[2020-08-30 20:04] LABS: HEMATOCRIT 37.1 % (37.0-47.0); HEMOGLOBIN 10.8 gm/dL (12.0-15.0); MCHC 29.2 g/dL (28.0-37.0); MCV 92.6 fL (80.0-100.0); MPV 7.9 fl. (7.2-11.1); NUCLEATED RBCS 2 /100WBC; PLATELET COUNT* 254 thou/uL (150-400); RBC 4.01 mil/uL (4.20-5.00); RDW-CV 18.2 % (10.5-14.5); WBC 17.9 thou/uL (4.0-11.0)
[2020-08-30 20:07] LABS: ALBUMIN 2.3 g/dL (3.4-5.0); MAGNESIUM 2.1 mg/dL (1.8-2.4); TOTAL BILIRUBIN 0.5 mg/dL (<0.1-1.0); TOTAL PROTEIN 5.3 g/dL (6.4-8.2)
[2020-08-30 20:17] LABS: APTT 26.5 Seconds (25.0-31.3); INR 1.3; PROTIME 13.3 Seconds (9.20-11.50)
[2020-08-30 20:21] LABS: BE -12.5 mmol/L (-2 to +3); PCO2 38.4 mmHg (35.0-45.0); PO2 74.2 mmHg (75.0-100.0)
[2020-08-30 20:23] LABS: pH 7.201 (7.340-7.450)
[2020-08-30 20:45] VITALS: BP 00/00
[2020-08-30 21:08] LABS: ABSOLUTE LYMPHOCYTES 3.4 thou/uL (0.8-5.3); ABSOLUTE MONOCYTES 1.1 thou/uL (0.0-1.2); ABSOLUTE NEUTROPHILS 13.4 thou/uL (1.6-8.1)
[2020-08-30 21:09] LABS: LARGE PLATELETS OCCASIONAL; PLATELET ESTIMATE ADEQUATE
[2020-08-30 21:10] LABS: ANISOCYTOSIS 1+; CLUMPED PLTS RARE
[2020-08-30 21:11] LABS: POLYCHROMASIA Occasional
[2020-08-30 21:53] LABS: URINE BLOOD 1+ (Negative); URINE CLARITY CLEAR; URINE COLOR YELLOW; URINE GLUCOSE-RANDOM NEGATIVE (Negative); URINE KETONES NEGATIVE (Negative); URINE LEUKOCYTES-REFLEX NEGATIVE (Negative); URINE NITRITE-REFLEX NEGATIVE (Negative); URINE PROTEIN NEGATIVE (Negative); URINE SPECIFIC GRAVITY >= 1.030 (1.005-1.030); URINE UROBILINOGEN 0.2 E.U./dl (0.2-1.0)
[2020-08-30 22:02] LABS: ICTOTEST (BILI CONFIRMATORY) Negative (Negative); URINE BILIRUBIN 1+ (Negative)
[2020-08-30 22:13] LABS: SQUAMOUS 4-10 Moderate /LPF (0-3)
[2020-08-30 22:14] LABS: AMORPHOUS URATES Moderate /LPF (None Seen); CASTS None Seen /LPF (None Seen); MUCUS None Seen strn/LPF (None Seen); URINE RBC 0-2 Rare /HPF (0-2); URINE WBC-REFLEX 0-5 Rare /HPF (0-5)
[2020-08-30 22:15] LABS: BACTERIA-REFLEX None Seen /HPF (None Seen)
[2020-08-30] MEDS ORDERED: SUPER THERAVIT1 EACH (22:19)
[2020-08-30] MEDS ORDERED: VITAMIN D3100 MCG (22:20)
[2020-08-30] MEDS ORDERED: SPIRONOLACTONE25 MG (22:20)
--- NOTE | 2020-08-31 09:42 | EKG ---
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: [place] : 1960 Requested By: Radha Cramer Order Number: [id number] [place] MD: Clarence Ballesteros Measurements Intervals [place] Rate: 139 P: [place]: QRS: 101 QRSD: 165 T: -2 QT: 333 QTc: 507 Interpretive Statements Supraventricular tachycardia of unclear mechanism Right bundle branch block Nonspecific ST-T alterations No previous ECG available for comparison Electronically Signed On 08-31-2020 9:42:46 ATTORNEY by Clarence Ballesteros [email or web address] <ELECTRONICALLY SIGNED> By: Clarence Ballesteros MD, [facility] 08/31/20 0942 35 35 Clarence Ballesteros MD, [facility] /EPI
--- NOTE | 2020-09-01 10:30 | EKG ---
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: [place] : 1960 Requested By: Radha Cramer Order Number: [id number] [place] MD: Brannon Scott Measurements Intervals [place] Rate: 143 P: 256 [place]: 70 QRS: 169 QRSD: 83 T: 6 QT: 299 QTc: 461 Interpretive Statements atrial fibrillation Low voltage with right axis deviation incomplete RBBB Compared to ECG 08/30/2020 19:36:46 no change Electronically Signed On 09-01-2020 10:30:03 FIELD HOCKEY COACH by Brannon Scott [email or web address] <ELECTRONICALLY SIGNED> By: Brannon Scott MD, FAC 09/01/20 1030 52 52 Brannon Scott MD, [facility] /EPI
== END 2020-08-30 20:45 ==
LOC: M.ERS 19:16
PROVIDERS: Personal Emergency Response Attendant
DX: I46.9 Cardiac arrest, cause unspecified (principal); Z20.822 Contact with and (suspected) exposure to COVID-19; I10 Essential (primary) hypertension; E78.5 Hyperlipidemia, unspecified; K21.9 Gastro-esophageal reflux disease without esophagitis; E11.9 Type 2 diabetes mellitus without complications; J44.9 Chronic obstructive pulmonary disease, unspecified; Z90.49 Acquired absence of other specified parts of digestive tract; Z79.899 Other long term (current) drug therapy; Z79.82 Long term (current) use of aspirin; Z98.890 Other specified postprocedural states